=== PATIENT | female | born 1985 | race Caucasian/White ===

== ENCOUNTER 2018-12-15 06:42 | Emergency (ER) | payer BC ==
[~2018-12-15] VITALS: Ht 167.6 cm; Wt 58.4 kg
[2018-12-15 06:44] VITALS: BP 134/86
[2018-12-15] MEDS ORDERED: LIDOCAINE-MPF 1%, 5ML INFIL ONE (07:30)
[2018-12-15] MEDS ORDERED: LIDOCAINE-MPF 1%, 5ML ONE (07:45)
--- NOTE | 2018-12-15 08:45 | NUR ---
Patient/Caregiver given discharge instructions and they have confirmed that they understand the instructions. Patient ambulatory with steady gait.
== END 2018-12-15 08:57 | disposition home or self-care (01) ==
LOC: ED 08:54
DX: S01.511A Laceration without foreign body of lip, initial encounter (principal); X58.XXXA Exposure to other specified factors, initial encounter; Y93.89 Activity, other specified; Y92.410 Unspecified street and highway as the place of occurrence of the external cause; Y99.8 Other external cause status
CPT/HCPCS: 40650; 99284